=== PATIENT | female | born 1955 | race Caucasian/White ===

== ENCOUNTER 2022-04-12 09:03 | Outpatient (CLI) | payer BC | END 2022-04-12 09:04 | disposition home or self-care (01) | LOC: CSHMAMMO 09:03 | PROVIDERS: ATTEND Family Medicine | DX: Z12.31 Encounter for screening mammogram for malignant neoplasm of breast (principal); Z98.890 Other specified postprocedural states | CPT/HCPCS: 77063; 77067 ==

== ENCOUNTER 2023-05-09 13:12 | Outpatient (CLI) | payer BC | END 2023-05-09 13:13 | disposition home or self-care (01) | LOC: CSHMAMMO 13:12 | PROVIDERS: ATTEND Obstetrics & Gynecology | DX: Z12.31 Encounter for screening mammogram for malignant neoplasm of breast (principal); Z13.820 Encounter for screening for osteoporosis; M85.89 Other specified disorders of bone density and structure, multiple sites; Z98.82 Breast implant status | CPT/HCPCS: 77063; 77067; 77080 ==

== ENCOUNTER 2025-06-03 13:27 | Outpatient (CLI) | payer BC | END 2025-06-03 13:28 | disposition home or self-care (01) | LOC: CSHMAMMO 13:27 | PROVIDERS: ATTEND Family Medicine | DX: Z12.31 Encounter for screening mammogram for malignant neoplasm of breast (principal); Z98.890 Other specified postprocedural states | CPT/HCPCS: 77063; 77067 ==